=== PATIENT | female | born 1965 | race Caucasian/White ===

== ENCOUNTER 2019-11-01 14:06 | Outpatient (CLI) | payer OTHER, SELFPAY ==
--- NOTE | ~2019-11-01 | XR_ITS ---
EXAMINATION: XR hand RT min 3V EXAM DATE: 11/01/2019 14:20 INDICATION: No known recent injury provided at this time. Pain of the right hand. TECHNIQUE: Right hand frontal, lateral and oblique projections obtained and reviewed. Correlation is made to contralateral hand same date. FINDINGS: Right metacarpal bones are unremarkable. There is mild to moderate polyarticular interphal angeal primary osteoarthritis. There are no bony erosions identified. There are no acute fractures o r dislocations identified. There is no subcutaneous gas. The soft tissue is unremarkable. There a re no radiopaque foreign bodies. 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 Reviewed, dictated and finalized at location A. IMPRESSION: Right hand mild to moderate polyarticular interphalangeal osteoarth ritis, symmetric to contralateral side.
--- NOTE | ~2019-11-01 | XR_ITS ---
EXAMINATION: XR hand LT min 3V EXAM DATE: 11/01/2019 14:20 INDICATION: No known recent injury provided at this time. Pain of the left hand. TECHNIQUE: Left hand frontal, lateral and oblique projections obtained and reviewed. Correlation is m perlita to contralateral hand same date. FINDINGS: Left metacarpal bones are unremarkable. There is mild to moderate polyarticular interphala ngeal primary osteoarthritis. There are no acute fractures or dislocations identified. There is no s ubcutaneous gas. The soft tissue is unremarkable. There are no radiopaque foreign bodies. There are no bony erosions identified. IMPRESSION: Mild to moderate left hand polyarticular interphalangeal osteoarthritis. Reviewed, dictated and finalized at location A. IMPRESSION: Mild to moderate left hand polyarticular interphalangeal osteoarthr itis.
== END 2019-11-01 14:07 ==
PROVIDERS: Visit Provider Nurse Practitioner Family
DX: M19.041 Primary osteoarthritis, right hand (principal); M19.042 Primary osteoarthritis, left hand
CPT/HCPCS: 73130